=== PATIENT | female | born 1945 | race Caucasian/White ===

== ENCOUNTER 2017-11-07 14:20 | Inpatient (IN) | payer MEDICARE, OTHER ==
[~2017-11-07] VITALS: Ht 157.5 cm; Wt 108.6 kg
[2017-11-07] MEDS ORDERED: Enalapril-Hctz1 EACH PO (14:59)
[2017-11-07] MEDS ORDERED: Micro-K10 MEQ PO (14:59)
[2017-11-07] MEDS ORDERED: LEVSOD50 PO (14:59)
[2017-11-07 15:02] LABS: BASOPHILS ABSOLUTE AUTO 0.05 K/mm3 (0.00-0.23); BASOPHILS PERCENT AUTO 1 % (0-2); EOSINOPHILS ABSOLUTE AUTO 0.08 K/mm3 (0.00-0.68); EOSINOPHILS PERCENT AUTO 1 % (0-6); Hematocrit 42.8 % (33.0-51.0); Hemoglobin 14.4 g/dL (11.5-16.0); IMMATURE GRAN ABSOLUTE AUTO 0.03 K/mm3 (0.00-0.10); IMMATURE GRAN PERCENT AUTO 0 % (0-1); LYMPHOCYTES ABSOLUTE AUTO 1.69 K/mm3 (0.84-5.20); LYMPHOCYTES PERCENT AUTO 23 % (21-46); MONOCYTES ABSOLUTE AUTO 0.81 K/mm3 (0.16-1.47); MONOCYTES PERCENT AUTO 11 % (4-13); Mean Corpuscular HGB 29.1 pg (26.0-34.0); Mean Corpuscular HGB Conc 33.6 g/dL (31.5-36.5); Mean Corpuscular Volume 87 fL (80-100); Mean Platelet Volume 10.9 fL (9.1-12.4); NEUTROPHILS ABSOLUTE AUTO 4.59 K/mm3 (1.96-9.15); NEUTROPHILS PERCENT AUTO 63 % (41-73); Platelet Count 254 K/mm3 (150-400); RDW Coefficient Variation 13.1 % (11.7-14.2); RDW Standard Deviation 40.9 fL (35.1-46.3); Red Blood Cell Count 4.94 M/mm3 (3.80-5.20); White Blood Cell Count 7.25 K/mm3 (4.00-11.30)
[2017-11-07 15:11] LABS: International Normalized Ratio 1.02; Prothrombin Time Results 10.5 Sec (9.7-11.5)
[2017-11-07] MEDS ORDERED: BUME1 PO (15:13)
[2017-11-07] MEDS ORDERED: VERA80 PO (15:14)
[2017-11-07 15:18] LABS: Alanine Aminotransfer (ALT/SGP 19 U/L (12-78); Albumin, Blood 3.9 g/dL (3.4-5.0); Albumin/Globulin Ratio 1.1 (0.8-1.8); Alk Phos 85 U/L (50-136); Anion Gap 9 mmol/L (6-16); Aspartate Aminotrans (AST/SGOT 17 U/L (12-37); Bilirubin, Total 0.8 mg/dL (0.1-1.0); Blood Urea Nitrogen 17 mg/dL (8-24); Bun/Creatinine Ratio 27.5 (12.0-20.0); CO2, Blood 26 mmol/L (21-32); Calcium, Blood 8.9 mg/dL (8.5-10.1); Chloride, Blood 105 mmol/L (98-108); Creatinine, Blood 0.62 mg/dL (0.40-1.00); Globulin, Blood 3.4 g/dL (2.2-4.0); Glomerular Filtration Rate >60 (60-); Glucose, Blood 105 mg/dL (70-99); Potassium, Blood 3.3 mmol/L (3.5-5.5); Sodium, Blood 140 mmol/L (136-145); Total Protein, Blood 7.3 g/dL (6.4-8.2)
[2017-11-07] MEDS ORDERED: IBUP800 PO (18:14)
[2017-11-07] MEDS ORDERED: VOLTAREN TOP (18:16)
[2017-11-08 08:37] LABS: BASOPHILS ABSOLUTE AUTO 0.02 K/mm3 (0.00-0.23); BASOPHILS PERCENT AUTO 0 % (0-2); EOSINOPHILS PERCENT AUTO 0 % (0-6); Hemoglobin 14.2 g/dL (11.5-16.0); IMMATURE GRAN ABSOLUTE AUTO 0.04 K/mm3 (0.00-0.10); IMMATURE GRAN PERCENT AUTO 0 % (0-1); LYMPHOCYTES ABSOLUTE AUTO 0.78 K/mm3 (0.84-5.20); LYMPHOCYTES PERCENT AUTO 7 % (21-46); MONOCYTES ABSOLUTE AUTO 0.43 K/mm3 (0.16-1.47); MONOCYTES PERCENT AUTO 4 % (4-13); Mean Corpuscular HGB 29.6 pg (26.0-34.0); Mean Corpuscular HGB Conc 33.8 g/dL (31.5-36.5); Mean Corpuscular Volume 88 fL (80-100); Mean Platelet Volume 10.7 fL (9.1-12.4); NEUTROPHILS PERCENT AUTO 88 % (41-73); Platelet Count 260 K/mm3 (150-400); RDW Coefficient Variation 13.1 % (11.7-14.2); Red Blood Cell Count 4.79 M/mm3 (3.80-5.20); White Blood Cell Count 10.57 K/mm3 (4.00-11.30)
[2017-11-08 08:53] LABS: Anion Gap 10 mmol/L (6-16); Blood Urea Nitrogen 16 mg/dL (8-24); Bun/Creatinine Ratio 27.7 (12.0-20.0); CO2, Blood 25 mmol/L (21-32); Calcium, Blood 8.8 mg/dL (8.5-10.1); Chloride, Blood 104 mmol/L (98-108); Creatinine, Blood 0.58 mg/dL (0.40-1.00); Glomerular Filtration Rate >60 (60-); Glucose, Blood 132 mg/dL (70-99); Potassium, Blood 2.9 mmol/L (3.5-5.5); Sodium, Blood 139 mmol/L (136-145)
== END 2017-11-08 14:52 | disposition short-term general hospital (02) | DRG 64 ==
LOC: ER 14:20 → PCU 17:00
PROVIDERS: Internal Medicine
DX: I63.9 Cerebral infarction, unspecified (principal); I61.9 Nontraumatic intracerebral hemorrhage, unspecified; I69.151 Hemiplegia and hemiparesis following nontraumatic intracerebral hemorrhage affecting right dominant side; I48.91 Unspecified atrial fibrillation; E03.9 Hypothyroidism, unspecified; I10 Essential (primary) hypertension; G47.33 Obstructive sleep apnea (adult) (pediatric); I69.120 Aphasia following nontraumatic intracerebral hemorrhage; I69.192 Facial weakness following nontraumatic intracerebral hemorrhage
CPT/HCPCS: 36415; 70450; 70544; 70551; 80048; 80053; 85025; 85610; 93005; 93010; 94762; J0360; J7060

== ENCOUNTER 2018-10-12 14:09 | Observation (INO) | payer MEDICARE, OTHER ==
[~2018-10-12] VITALS: Ht 162.6 cm; Wt 102.0 kg
[~2018-10-12 14:09] MED LIST: BUME1 PO; Enalapril-Hctz1 EACH PO; IBUP800 PO; LEVSOD50 PO; Micro-K10 MEQ PO; VERA80 PO; VOLTAREN TOP
[2018-10-12 14:26] LABS: BASOPHILS ABSOLUTE AUTO 0.06 K/mm3 (0.00-0.23); BASOPHILS PERCENT AUTO 1 % (0-2); EOSINOPHILS ABSOLUTE AUTO 0.07 K/mm3 (0.00-0.68); EOSINOPHILS PERCENT AUTO 1 % (0-6); Hematocrit 43.8 % (33.0-51.0); IMMATURE GRAN ABSOLUTE AUTO 0.02 K/mm3 (0.00-0.10); IMMATURE GRAN PERCENT AUTO 0 % (0-1); LYMPHOCYTES ABSOLUTE AUTO 1.65 K/mm3 (0.84-5.20); LYMPHOCYTES PERCENT AUTO 26 % (21-46); MONOCYTES ABSOLUTE AUTO 0.71 K/mm3 (0.16-1.47); MONOCYTES PERCENT AUTO 11 % (4-13); Mean Corpuscular HGB 29.8 pg (26.0-34.0); Mean Corpuscular Volume 93 fL (80-100); NEUTROPHILS ABSOLUTE AUTO 3.78 K/mm3 (1.96-9.15); NEUTROPHILS PERCENT AUTO 60 % (41-73); Platelet Count 221 K/mm3 (150-400); RDW Coefficient Variation 13.3 % (11.7-14.2); RDW Standard Deviation 45.9 fL (35.1-46.3); White Blood Cell Count 6.29 K/mm3 (4.00-11.30)
[2018-10-12] MEDS ORDERED: METO100 PO (14:35)
[2018-10-12] MEDS ORDERED: XARELTO20 MG PO (14:35)
[2018-10-12] MEDS ORDERED: AMLO5 PO (14:35)
[2018-10-12] MEDS ORDERED: ESCI10 PO (14:36)
[2018-10-12 14:49] LABS: International Normalized Ratio 1.22; Prothrombin Time Results 12.7 Sec (9.7-11.5)
[2018-10-12 14:50] LABS: Alanine Aminotransfer (ALT/SGP 30 U/L (12-78); Albumin, Blood 3.8 g/dL (3.4-5.0); Albumin/Globulin Ratio 1.1 (0.8-1.8); Alk Phos 106 U/L (50-136); Anion Gap 10 mmol/L (6-16); Aspartate Aminotrans (AST/SGOT 28 U/L (12-37); Bilirubin, Total 1.3 mg/dL (0.1-1.0); Blood Urea Nitrogen 14 mg/dL (8-24); Bun/Creatinine Ratio 18.8 (12.0-20.0); CO2, Blood 25 mmol/L (21-32); Calcium, Blood 8.7 mg/dL (8.5-10.1); Chloride, Blood 106 mmol/L (98-108); Creatinine, Blood 0.74 mg/dL (0.40-1.00); Globulin, Blood 3.6 g/dL (2.2-4.0); Glomerular Filtration Rate >60 (60-); Glucose, Blood 131 mg/dL (70-99); Potassium, Blood 3.8 mmol/L (3.5-5.5); Sodium, Blood 141 mmol/L (136-145); Total Protein, Blood 7.4 g/dL (6.4-8.2)
[2018-10-12 15:13] LABS: Source, Urine Clean Catch
[2018-10-12 15:17] LABS: Bilirubin, Urine Neg (Neg); Blood, Urine 1+ (Neg); Glucose Qualitative, Urine Neg (Neg); Ketones, Urine Neg (Neg); Leukocyte Esterase, Urine Neg (Neg); Nitrite, Urine Neg (Neg); Protein, Urine 2+ (Neg); Specific Gravity, Urine 1.015 (1.003-1.022); Urobilinogen, Urine NORM (Normal); pH, Urine 6.5 (5.0-8.0)
[2018-10-12 15:23] LABS: Appearance, Urine Clear (Clear); Color, Urine Yellow (P-Yellow)
[2018-10-12 15:28] LABS: Bacteria Few /hpf; Red Blood Cells, Urine 0-2 /hpf (0-2); Squamous Epithelial Cells Not Seen /hpf (Few); White Blood Cells, Urine 0-2 /hpf (0-5)
[2018-10-12] MEDS ORDERED: ATOR40TA PO (16:00)
--- NOTE | 2018-10-12 17:30 | NUR ---
echocardiogram complete
--- NOTE | 2018-10-12 18:52 | NUR ---
REPORT RECEIVED FROM RUDOLPH JURADO RN. NO ACUTE CHANGES NOTED. PATIENT REPORTS SHE IS BACK TO HER BASELINE. NO COMPLAINTS OF PAIN OR DISCOMFORT NOTED. NEURO'S WNL. O2 @ 4 LITERS WHICH IS BASELINE FOR PATIENT AT NIGHT AND WHEN SHE IS FEELING SHORT OF BREATH. NO OTHER ISSUES NOTED. WILL CONTINUE TO MONITOR FOR CHANGES.
[2018-10-13 05:54] LABS: BASOPHILS ABSOLUTE AUTO 0.04 K/mm3 (0.00-0.23); BASOPHILS PERCENT AUTO 1 % (0-2); EOSINOPHILS ABSOLUTE AUTO 0.08 K/mm3 (0.00-0.68); EOSINOPHILS PERCENT AUTO 1 % (0-6); Hematocrit 40.6 % (33.0-51.0); Hemoglobin 13.1 g/dL (11.5-16.0); IMMATURE GRAN ABSOLUTE AUTO 0.01 K/mm3 (0.00-0.10); IMMATURE GRAN PERCENT AUTO 0 % (0-1); LYMPHOCYTES ABSOLUTE AUTO 1.26 K/mm3 (0.84-5.20); LYMPHOCYTES PERCENT AUTO 17 % (21-46); MONOCYTES ABSOLUTE AUTO 0.89 K/mm3 (0.16-1.47); MONOCYTES PERCENT AUTO 12 % (4-13); Mean Corpuscular HGB 29.4 pg (26.0-34.0); Mean Corpuscular HGB Conc 32.3 g/dL (31.5-36.5); Mean Corpuscular Volume 91 fL (80-100); Mean Platelet Volume 11.2 fL (9.1-12.4); NEUTROPHILS ABSOLUTE AUTO 5.18 K/mm3 (1.96-9.15); NEUTROPHILS PERCENT AUTO 70 % (41-73); Platelet Count 207 K/mm3 (150-400); RDW Coefficient Variation 13.2 % (11.7-14.2); RDW Standard Deviation 44.6 fL (35.1-46.3); Red Blood Cell Count 4.45 M/mm3 (3.80-5.20); White Blood Cell Count 7.46 K/mm3 (4.00-11.30)
[2018-10-13 06:24] LABS: Alanine Aminotransfer (ALT/SGP 28 U/L (12-78); Albumin, Blood 3.4 g/dL (3.4-5.0); Alk Phos 86 U/L (50-136); Anion Gap 5 mmol/L (6-16); Aspartate Aminotrans (AST/SGOT 25 U/L (12-37); Bilirubin, Total 1.3 mg/dL (0.1-1.0); Blood Urea Nitrogen 13 mg/dL (8-24); Bun/Creatinine Ratio 20.4 (12.0-20.0); CO2, Blood 30 mmol/L (21-32); Calcium, Blood 8.4 mg/dL (8.5-10.1); Chloride, Blood 105 mmol/L (98-108); Creatinine, Blood 0.64 mg/dL (0.40-1.00); Globulin, Blood 3.3 g/dL (2.2-4.0); Glomerular Filtration Rate >60 (60-); Glucose, Blood 95 mg/dL (70-99); Potassium, Blood 3.3 mmol/L (3.5-5.5); Sodium, Blood 140 mmol/L (136-145); Total Protein, Blood 6.7 g/dL (6.4-8.2)
--- NOTE | 2018-10-13 07:27 | NUR ---
SHIFT SUMMARY PT IS A 73 Y/O FEMALE, ADMITTED WITH A TIA. SHE IS A&O X 4, AND A SBA WITH A CANE IN THE ROOM. THE PT REMAINED NEUROLOGICALLY INTACT DURING THE NIGHT, WITH NO S/S OF NEURO DEFICITS NOTED. SHE DENIED ANY COMPLAINTS OF PAIN, NAUSEA OR SOB, AND SLEPT WELL THROUGH THE NIGHT. NO OTHER ACUTE CHANGES IN PT CONDITION NOTED. REPORT GIVEN TO ONCOMING RN.
--- NOTE | 2018-10-13 16:33 | NUR ---
PT DISCHARGED PT DISCHARGED AT 1616. NO CHANGES IN ASSESSMENT AT THIS TIME. VSS. PT EDUCATED ON DC INSTRUCTIONS & THAT [facility] WILL CALL TO MAKE A FOLLOW UP APPOINTMENT. PT DENIES FUTHER INSTRUCTION. PT WHEELED OUT BY THIS RN & DRIVEN HOME BY DAUGHTER IN LAW. IV REMOVED & INTACT.
== END 2018-10-13 16:16 | disposition home or self-care (01) ==
LOC: ER 14:09 → MEDS 14:10 → ER 16:57 → MEDS 18:11 → ENPENDDIS 10-13 15:31 → MEDS 10-13 16:16
PROVIDERS: Emergency Medicine; ADMIT Student in an Organized Health Care Education/Training Program
DX: I63.9 Cerebral infarction, unspecified (principal); G45.9 Transient cerebral ischemic attack, unspecified; I48.2 Chronic atrial fibrillation; I10 Essential (primary) hypertension; G47.33 Obstructive sleep apnea (adult) (pediatric)
CPT/HCPCS: 36415; 70450; 71045; 80053; 81001; 85025; 85610; 85730; 92523; 93005; 93010; 93306; 93880; 97162; 97166; 97530; 99285-25; G0378; G0515; P9612

== ENCOUNTER → 2018-12-19 | Outpatient (CLI) | payer MEDICARE, OTHER ==
[~2018-12-19] MED LIST changes: +AMLO5 PO; +ATOR40TA PO; +ESCI10 PO; +METO100 PO; +XARELTO20 MG PO
== END | disposition home or self-care (01) ==
LOC: LAB EV 16:40 → LAB SHORT 16:40
DX: R31.9 Hematuria, unspecified (principal)
CPT/HCPCS: 87086

== ENCOUNTER → 2019-01-07 | Outpatient (CLI) | payer MEDICARE, OTHER | END | disposition home or self-care (01) | LOC: LAB EV 16:00 → LAB SHORT 16:00 | DX: R30.0 Dysuria (principal); Z79.899 Other long term (current) drug therapy | CPT/HCPCS: 87077; 87086; 87186 ==

== ENCOUNTER → 2019-04-11 | Outpatient (CLI) | payer MEDICARE, OTHER | LOC: LAB EV 14:00 → LAB SHORT 14:00 | DX: R82.998 Other abnormal findings in urine (principal) | CPT/HCPCS: 87086 ==

== ENCOUNTER → 2019-08-28 | Outpatient (CLI) | payer MEDICARE, OTHER | END | disposition home or self-care (01) | LOC: LAB SHORT 13:04 → LAB EV 13:04 | DX: N39.0 Urinary tract infection, site not specified (principal) | CPT/HCPCS: 87077; 87086; 87186 ==

== ENCOUNTER 2020-05-18 11:37 | Inpatient (IN) | payer MEDICARE, OTHER ==
[~2020-05-18] VITALS: Ht 160 cm; Wt 114.9 kg
[~2020-05-18 11:37] MED LIST changes: -AMLO5 PO; -ATOR40TA PO; -LEVSOD50 PO; -METO100 PO; -Micro-K10 MEQ PO
[2020-05-18 13:13] LABS: BASOPHILS ABSOLUTE AUTO 0.05 K/mm3 (0.00-0.23); BASOPHILS PERCENT AUTO 1 % (0-2); EOSINOPHILS ABSOLUTE AUTO 0.11 K/mm3 (0.00-0.68); EOSINOPHILS PERCENT AUTO 1 % (0-6); Hematocrit 45.4 % (33.0-51.0); IMMATURE GRAN ABSOLUTE AUTO 0.02 K/mm3 (0.00-0.10); IMMATURE GRAN PERCENT AUTO 0 % (0-1); LYMPHOCYTES ABSOLUTE AUTO 1.24 K/mm3 (0.84-5.20); LYMPHOCYTES PERCENT AUTO 16 % (21-46); MONOCYTES ABSOLUTE AUTO 0.71 K/mm3 (0.16-1.47); MONOCYTES PERCENT AUTO 9 % (4-13); Mean Corpuscular HGB 30.2 pg (26.0-34.0); Mean Corpuscular Volume 92 fL (80-100); Mean Platelet Volume 11.1 fL (9.1-12.4); NEUTROPHILS ABSOLUTE AUTO 5.54 K/mm3 (1.96-9.15); NEUTROPHILS PERCENT AUTO 72 % (41-73); Platelet Count 214 K/mm3 (150-400); RDW Standard Deviation 43.4 fL (35.1-46.3); Red Blood Cell Count 4.96 M/mm3 (3.80-5.20); White Blood Cell Count 7.67 K/mm3 (4.00-11.30)
[2020-05-18 13:29] LABS: Alanine Aminotransfer (ALT/SGP 31 U/L (12-78); Albumin, Blood 3.4 g/dL (3.4-5.0); Albumin/Globulin Ratio 0.9 (0.8-1.8); Alk Phos 120 U/L (50-136); Anion Gap 6 mmol/L (6-16); Aspartate Aminotrans (AST/SGOT 19 U/L (12-37); Bilirubin, Total 1.2 mg/dL (0.1-1.0); Blood Urea Nitrogen 13 mg/dL (8-24); Bun/Creatinine Ratio 18.6 (12.0-20.0); CO2, Blood 29 mmol/L (21-32); Chloride, Blood 107 mmol/L (98-108); Globulin, Blood 3.9 g/dL (2.2-4.0); Glomerular Filtration Rate >60 (60-); Glucose, Blood 110 mg/dL (70-99); Potassium, Blood 3.5 mmol/L (3.5-5.5); Sodium, Blood 142 mmol/L (136-145); Total Protein, Blood 7.3 g/dL (6.4-8.2)
[2020-05-18 13:35] LABS: International Normalized Ratio 1.02; Prothrombin Time Results 10.9 Sec (9.7-11.5)
[2020-05-18] MEDS ORDERED: Micro-K10 MEQ PO (13:49)
[2020-05-18] MEDS ORDERED: AMLO5 PO (13:49)
[2020-05-18] MEDS ORDERED: ATOR40TA PO (13:50)
[2020-05-18] MEDS ORDERED: Aspir 8181 MG PO (13:57)
--- NOTE | 2020-05-18 16:05 | NUR ---
ARRIVAL TO ICU PT ARRIVES TO ICU AT 1523 FROM ER. ADMITTED FOR CVA. PER ONLINE EDITOR, SUDDEN ONSET OF RIGHT SIDED WEAKNESS AT 1105 WHILE AT HEARING APPT. PT c EXPRESSIVE APHAGIA, ABLE TO SPEAK 2-3 WORDS AT A TIME. FRUSTRATED. ATTEMPTED TO USE COMMUNICATION BOARD c PT c LITTLE SUCCESS. RIGHT SIDED FACIAL DROOP. NO MOVEMENT TO RIGHT ARM OR LEG. PT DENIES SENSATION. EXT PULSES PAL. CAP REFILL>3 SEC. FULL ROM TO LEFT SIDE. HEARING AID TO LEFT EAR ONLY. DE LUNA PATENT, DRAINING TO GRAVITY. VSS. CALL LIGHT IN REACH. WILL CONTINUE TO MONITOR.
--- NOTE | 2020-05-18 17:33 | NUR ---
SHIFT SUMMARY NO CHANGES IN ASSESSMENT. PT CONTINUES TO HAVE EXPRESSIVE APHAGIA. ABLE TO SWALLOW ASA s DIFFICULTIES. PT ABLE TO COMMUNICATE THAT SHE IS CONCERNED ABOUT HER DOG AND NEEDS SOMEONE TO CHECK ON THEM. ALSO THAT HER CAR IS AT THE HEARING OFFICE. ATTEMPTED MULTIPLE TIMES TO CONTACT PT'S SON TRINY. LEFT MESSAGE. DR POOLE ROUNDED, ORDERED q2 HR NEURO CHECKS. WILL CONTINUE TO MONITOR UNTIL REPORT TO ONCOMING NURSE.
--- NOTE | 2020-05-18 19:00 | NUR ---
ASSUMED CARE NOTE: ASSUMED CARE OF PT AT 1900, RECEVIED REPORT FROM CLARENCE SERRANO. PT IS ALERT AND ABLE TO COMMUNICATE USING HEAD AND HAND GEATURES. PT IS EXPERENCING SEVERE EXPRESSIVE APHASIA. PT UNABLE TO USE COMMINICATION BOARD. PT BECOMES FRUSTRATED WHEN NOT ABLE TO COMMINICATE HER NEEDS. HOWEVER, SHE IS COOPRATIVE WITH CARE. PT IS ON RA WITH SPO2 ABOVE 90% PT IN AFIB WITH HR IN THE 70'S . SBP 150-160. PULSES STRONG IN BILAT PEDAL AND RADIAL. RIGHT ARM FLACCID, MUSCLE TWITCH NOTED TO RIGHT LEG, SOME GROSS MOVEMENT NOTED. PT DENIES ANY SENSATION TO RIGHT ARM/LEG. WILL CONTINUE TO MONITOR PT T/O SHIFT.
[2020-05-19 03:40] LABS: BASOPHILS ABSOLUTE AUTO 0.05 K/mm3 (0.00-0.23); BASOPHILS PERCENT AUTO 1 % (0-2); EOSINOPHILS ABSOLUTE AUTO 0.11 K/mm3 (0.00-0.68); EOSINOPHILS PERCENT AUTO 1 % (0-6); Hematocrit 42.2 % (33.0-51.0); Hemoglobin 14.1 g/dL (11.5-16.0); IMMATURE GRAN ABSOLUTE AUTO 0.02 K/mm3 (0.00-0.10); IMMATURE GRAN PERCENT AUTO 0 % (0-1); LYMPHOCYTES ABSOLUTE AUTO 1.49 K/mm3 (0.84-5.20); LYMPHOCYTES PERCENT AUTO 18 % (21-46); MONOCYTES ABSOLUTE AUTO 0.86 K/mm3 (0.16-1.47); MONOCYTES PERCENT AUTO 10 % (4-13); Mean Corpuscular HGB 30.6 pg (26.0-34.0); Mean Corpuscular HGB Conc 33.4 g/dL (31.5-36.5); Mean Corpuscular Volume 92 fL (80-100); Mean Platelet Volume 10.7 fL (9.1-12.4); NEUTROPHILS ABSOLUTE AUTO 5.95 K/mm3 (1.96-9.15); NEUTROPHILS PERCENT AUTO 70 % (41-73); Platelet Count 201 K/mm3 (150-400); RDW Coefficient Variation 13.1 % (11.7-14.2); RDW Standard Deviation 43.4 fL (35.1-46.3); Red Blood Cell Count 4.61 M/mm3 (3.80-5.20); White Blood Cell Count 8.48 K/mm3 (4.00-11.30)
[2020-05-19 03:55] LABS: Anion Gap 8 mmol/L (6-16); Blood Urea Nitrogen 12 mg/dL (8-24); Bun/Creatinine Ratio 18.2 (12.0-20.0); CO2, Blood 27 mmol/L (21-32); Calcium, Blood 8.6 mg/dL (8.5-10.1); Chloride, Blood 108 mmol/L (98-108); Creatinine, Blood 0.66 mg/dL (0.40-1.00); Glomerular Filtration Rate >60 (60-); Glucose, Blood 106 mg/dL (70-99); Potassium, Blood 3.1 mmol/L (3.5-5.5); Sodium, Blood 143 mmol/L (136-145)
--- NOTE | 2020-05-19 06:04 | NUR ---
SHIFT SUMMARY: NO CHANGES TO NEURO STATUS T/O SHIFT. PT REMAINS ABLE TO FOLLOW COMMANDS, HAS BEEN ABLE TO COMMUNICATE USING BODY GESTURES. PT WORE CPAP T/O NIGHT SPO2 MAINTAINED ABOVE 90% PT HAS BEEN IN AFIB WITH HR BETWEEN 50-70. BP STABLE. RIGHT ARM CONTINUES TO BE FLACCID, PT DENIES ANY SENSATION TO THE ARM. RLE MOVES SPONTANOUSLY W/O PURPOSE, PT DENIES SENSATION TO EXTREMITY. BT HEARD, NO BM THIS SHIFT. DE LUNA PATENT, DRAINING TO GRAVITY. LR RUNNING AT 50ML/HR. WILL CONTINUE TO MONITOR PT UNTIL REPORT IS GIVEN TO ONCOMING SHIFT.
--- NOTE | 2020-05-19 08:30 | NUR ---
ASSUMED CARE BEDSIDE REPORT FROM LEONARDO SERRANO. PT RESTING IN BED. WAKES c VERBAL STIMULI. WEARING CPAP FOR SLEEP. ON RA WHEN AWAKE, O2 SATS >93%. PT ABLE TO FOLLOW SIMPLE COMMANDS. NO MOVEMENT TO RIGHT ARM, GROSS INVOLUNTARY MOVEMENT TO RIGHT LEG. RIGHT SIDED FACIAL DROOP. EXPRESSIVE APHAGIA CONTINUES, UNCHANGES SINCE YESTERDAY. AFIB ON MONITOR, RATE 50'S. BP STABLE. WILL CONTINUE TO MONITOR.
--- NOTE | 2020-05-19 10:47 | NUR ---
echocardiogram completed.
--- NOTE | 2020-05-19 17:05 | NUR ---
SHIFT SUMMARY PT STATUS CHANGED TO PCU THIS SHIFT. NEURO EXAMS REMAIN UNCHANGED. MRI COMPLETED AND IMAGES SHIPPED TO [facility]. ECHO COMPLETED, PENDING RESULTS. EVALUATED BY SPEECH THERAPY. REGULAR DIET ORDERED. IVF CHANGED TO NACL c K. DE LUNA PATENT, DRAINING CLEAR LEONIDAS URINE TO GRAVITY. WILL CONTINUE TO MONITOR UNTIL REPORT TO ONCOMING NURSE.
--- NOTE | 2020-05-19 18:59 | NUR ---
RECEIVED REPORT FROM ZACH SEPULVEDA FROM ICU. PT TO ROOM AT 1855. WILL CONTINUE TO MONITOR UNITL REPORT GIVEN TO ONCOMING RN.
[2020-05-20 04:26] LABS: Anion Gap 6 mmol/L (6-16); Blood Urea Nitrogen 18 mg/dL (8-24); Bun/Creatinine Ratio 25.5 (12.0-20.0); CO2, Blood 27 mmol/L (21-32); Calcium, Blood 8.5 mg/dL (8.5-10.1); Chloride, Blood 110 mmol/L (98-108); Creatinine, Blood 0.71 mg/dL (0.40-1.00); Glomerular Filtration Rate >60 (60-); Glucose, Blood 124 mg/dL (70-99); Magnesium, Blood 2.2 mg/dL (1.6-2.4); Potassium, Blood 3.6 mmol/L (3.5-5.5); Sodium, Blood 143 mmol/L (136-145)
--- NOTE | 2020-05-20 05:49 | NUR ---
05/20/20 0545 PT AWAKENED FOR VITALS AND REPOSITIONING. DENIES ANY DISCOMFORT WITH "NO." ABLE TO SAY ONE WORD ANSWERS THIS SHIFT. BP WAS ELEVATED LAST EVENING AND ON-CALL MD NOTIFIED. ORDER WAS GIVEN TO CALL MD IF SBP GREATER THAN 185. IT WAS NOT THAT HIGH AFTERWARDS. DE LUNA PATENT AND DRAINING WELL. TAKING ORAL LIQUIDS AND APPLESACE WITHOUT PROBLEMS. CPAP WAS ON MOST OF NIGHT AND SHE REQUESTED IT OFF NOW. CPAP REMOVED.
--- NOTE | 2020-05-20 14:16 | NUR ---
ADMIT: 05/18/20 DISCHARGE: DX: CVA CC: LEIF CALL: RESIDENCE: home CAREGIVER: Dilia Schroeder, Daughter, , DX: CVA, Afib, HTN, NEW, see list DME: CPAP machine CCM: none HOME HEALTH: [facility] 2018 SUMMARY: 05/20/20- per chart review with Dr. Melton, pt has had a stroke affecting the right side of her body. is thinking that she will need to go to SNF when stable to d/c. is waiting to see what PT and OT's recommendations are for pt to help determine her d/c plan. At this time, there is no ETA for d/c. -kjw 1: Neurologic deficit due to acute ischemic cerebrovascular accident (CVA) A/P: - Admitted to ICU for monitoring - CT head without acute hemorrhage, but CTA of neck showed complete occlusion of left M1 segment. - ED physician Dr. Gordon reported consulting neurology/stroke team at [facility] with determination that patient was neither a candidate for tPA nor thrombectomy of left M1 segment occlusion due to her history of hemorrhagic conversion and high bleeding risk. Instead the recommendations were relayed to me to provide routine care with aspirin and hold anticoagulants at this time, with repeat CT brain in 12 hours to assess for hemorrhage or interval change. There was initial concern about Xarelto use but the patient has not taken this since [address] imaging is completed, we should consult [facility] stroke/neurology team for if/when to consider anticoagulation such as Xarelto. - permissive hypertension holding amlodipine unless BP>200/110. Continuing beta gracie for a fib rate control - neuro checks Q2H. Will perform CT head prompltly for any signficant acute changes - MRI and cardiac echo ordered for tomorrow - PT, OT eval and speech therapy for formal swallow eval tomorrow - Will allow small sips of clear fluids for now if tolerated. MIVF with LR @ 50 ml/hr until taking PO well. - Continue home atorvastatin 40 mg daily 2: Episodic atrial fibrillation A/P: - Changed home metoprolol 100 mg BID to atenolol 50 mg BID to provide rate control for A fib with less antihypertensive effect. Will return to metoprolol before hospital discharge when resuming chronic hypertension control
--- NOTE | 2020-05-20 17:17 | NUR ---
SHIFT SUMMARY PT ALERT; ATTEMPTS TO COMMUNICATE BUT APPEARS FRUSTRATED TO NOTE FIND THE RIGHT WORDS. PT ANSWERING YES/NO QUESTIONS; ATTEMPTS LONGER ANSWER. T/O SHIFT. PT REPOSITIONED T/O SHIFT FOR COMFORT AND PRESSURE ULCER PREVENTION. PT DENIES PAIN, SOB, NAUSEA AND DIZZINESS. BP TRENDING DOWN T/O SHIFT. OTHER VSS. NO OTHER ACUTE CHANGES NOTED DURING SHIFT. WILL CONTINUE TO MONITOR UNITL REPORT GIVEN TO ONCOMING RN.
--- NOTE | 2020-05-21 06:08 | NUR ---
SHIFT SUMMARY PT ALERT, UNABLE TO COMMUNICATE VERBALLY BEYOND "YES" & "NO" RESPONSES. PT ATTEMPTING TO VERBALLY COMMUNICATE T/O SHIFT BUT UNABLE. PT ATTEMPTING TO STATE OWN NAME BUT STRUGGLES W/ FORMING WORDS & MAKES SOUNDS ONLY. PT GRABBING AT LEFT EAR MULTIPLE TIMES THIS SHIFT TRYING TO COMMUNICATE SOMETHING ABOUT L SIDE OF HEAD &/OR EAR, BUT PT DENIES PAIN, DENIES HEARING AID, DENIES THE MANY OPTIONS Q'd TO WHAT PT MAY BE TRYING TO COMMUNICATE. VISUAL PICTURE BOARD AT BEDSIDE FOR PT COMMUNICATION. PT VSS. SPO2 > 92% ON RA OR CPAP WHILE SLEEPING. MONITOR SHOWING AFIB, HR 70's-80's. PT R ARM FLACCID AT SIDE. Q2H REPOSITIONING BY 2 STAFF MEMEBERS W/ MODERATE/MAX ASSIST. DE LUNA CATH PATENT & DRAINING DARK YELLOW URINE. WILL CONTINUE TO MONITOR & PROVIDE CARE UNTIL REPORT OFF TO DAY SHIFT RN.
--- NOTE | 2020-05-21 14:32 | NUR ---
Patient has given this student nurse Marco Antonio Schuster permission to provide care at from 13:30-20:30
--- NOTE | 2020-05-21 17:44 | NUR ---
SUMMARY: Admit 05/18/20 05/21/20 Met with Samantha in her room, PT OT recommend Snf for rehab. Samantha prefers to go to [facility] for rehab. Completed a snf check list, turned into caremanagement for review on Thursday. Snf had a maximum amount of requests for today. Samantha would like me to call her son to update him on rehab and when it is available. cp.
--- NOTE | 2020-05-21 17:45 | NUR ---
Per Samantha Bryant ready for discharge to snf, she will place order for covid test and bowel care.
--- NOTE | 2020-05-21 18:12 | NUR ---
SHIFT SUMMARY: PT ALERT T/OUT SHIFT AND ANSWERING QUESTIONS WITH ONE WORD RESPONSES UNTIL APPROX 1650 PT STATED "I DON'T KNOW HOW TO SPELL IT" WHEN ATTEMPTING TO USE COMMUNICATION BOARD. PT ALSO REPORTS IMPROVED SENSATION TO RUE ALTHOUGH EXTREMITY CONTINUES TO BE FLACCED. INDWELLING DE LUNA CONTINUES IN PLACE, Q2H TURNS AND REPOSITIONING TOLERATED MAINTAINED T/OUT SHIFT. WILL CONTINUE TO MONITOR AND TREAT ACCORDINGLY UNTIL CHANGE OF SHIFT.
--- NOTE | 2020-05-21 23:09 | NUR ---
TRANSFER NOTE PT MEDICAL NO TELE STATUS. ALERT, ABLE TO ANSWER Y/N Q's & SAY SOME WORDS. PT UNABLE TO STATE OWN NAME & BUT ANSWERS "YES" TO NAME, , LOCATION, DATE/TIME. PT ABLE TO MAKE NEEDS KNOWN BY POINTING & USING COMMUNICATION PICTURE BOARD. R ARM REMAINS FLACID AT PT's SIDE. R LEG NOW ABLE TO BEND AT KNEE & MINIMALLY LIFT UP OFF OF BED. VSS. SPO2 > 92% ON RA. DE LUNA CATH PATENT & DRAINING W/ SOME LEAKING NOTED. ATTENDS IN PLACE. PT W/ CHAYA BAZAN. Q2H REPOSITIONING. REPORT GIVEN TO ACCEPTING MEDICAL FLOOR RN. PT TO BE TAKEN BY BED W/ BELONGINGS BY 2 PCT's AT THIS TIME.
--- NOTE | 2020-05-21 23:25 | NUR ---
PT ARRIVED FROM PCU-9 VIA GURNEY. TRANSFERRED TO BED USING SLIDER SHEET. AGREED WITH KARLA SERRANO PCU ASSESSMENT. REPOSITIONED TO HER COMFORT. CALL LIGHT IN REACH.
--- NOTE | 2020-05-22 05:55 | NUR ---
SHIFT SUMMARY: ANASTACIO WAS TRANSFERRED TO THIS FLOOR AROUND MIDNIGHT. SHE HAS RIGHT SIDED WEAKNESS, RIGHT ARM FLACCID, RIGHT LEG HAS GROSS MOVEMENT AT TIMES. SHE IS ABLE TO BEND AND LIFT SLIGHTLY. NOT ABLE TO WIGGLE HER TOES FOR ME. ABLE TO STAY "YES' "NO" BUT HAS NOT BEEN ABLE TO SAY ANY OTHER WORDS FOR ME. SHE DOES POINT AND TRY TO WRITE WHAT SHE WANTS BUT HAS DIFFCULTY REMEMBERING HOW TO SPELL A WORD OR WHAT IT IS CALLED. MOST OF THE TIME IT IS A GUESSING GAME. CATHETER IS PATENT AND DRAINING. NO SKIN BREAKDOWN NOTED. RIGHT FACIAL DROOP. BP WAS HIGH IN PCU, NOW ARE DOWN TO NORMAL RANGE. IRREGULAR HR. CPAP AT NIGHT. SLEPT REST OF SHIFT WITH NO ACUTE CHANGES TO NOTE. CALL LIGHT IS IN REACH.
--- NOTE | 2020-05-22 11:28 | NUR ---
EYE DROPS, DC EVANS, AND NEURO CHECKS Received V.O. from Dr. Montes for Refresh eye drops BID, d/c evans catheter, and change Neuro Checks to Q12 hours. Orders have been updated.
[2020-05-22 15:14] LABS: Influenza A, PCR Negative (NEGATIVE); Influenza B, PCR Negative (NEGATIVE); Resp Syncytial Virus, PCR Negative (NEGATIVE); SARS-Cov-2 (COVID-19) PCR, MMC Negative (NEGATIVE)
[2020-05-22] MEDS ORDERED: LIQUID TEARS BOTHEYES (15:42)
[2020-05-22] MEDS ORDERED: DERMAPHOR228 GM BOTHEYES (15:46)
--- NOTE | 2020-05-22 17:14 | NUR ---
Spiritual care note: Samantha admits she is fearful of the future. She becomes frustrated when she cannot speak what she is thinking. I provided encouragement and prayer to good effect. She appeared to enjoy companionship and benefited from my interventions. She is being d/c this afternoon.
--- NOTE | 2020-05-22 17:21 | NUR ---
Discharge Summary A/Ox3, pleasant and cooperative. Discharge to [facility]. Transport set up by . Discharge paperwork completed. Packet given to transport. Personal belongings along with phone and hearing aid sent with patient. Report given to [facility] receiving nurse Contreras.
--- NOTE | 2020-05-22 18:33 | NUR ---
SUMMARY: Admit 05/18/20 [facility] s/w daughter by telephone and Samantha in person. Mary Esther to follow care at [facility], kelsie call will be made to [facility] Thu or to schedule follow up appointment. Left Kelsie letter with Samantha.
== END 2020-05-22 17:10 | DRG 65 ==
LOC: ER 11:37 → PCU 13:48 → ICUW 13:48 → ICUE 15:22 → PCU 05-19 18:51 → MEDS 05-21 23:25
PROVIDERS: Emergency Medicine; ADMIT Family Medicine
DX: I63.519 Cerebral infarction due to unspecified occlusion or stenosis of unspecified middle cerebral artery (principal); G81.91 Hemiplegia, unspecified affecting right dominant side; R29.810 Facial weakness; R47.01 Aphasia; I48.0 Paroxysmal atrial fibrillation; E87.6 Hypokalemia; E78.5 Hyperlipidemia, unspecified; E03.9 Hypothyroidism, unspecified; N18.2 Chronic kidney disease, stage 2 (mild); I12.9 Hypertensive chronic kidney disease with stage 1 through stage 4 chronic kidney disease, or unspecified chronic kidney disease; G47.33 Obstructive sleep apnea (adult) (pediatric); Z20.822 Contact with and (suspected) exposure to COVID-19; Z86.73 Personal history of transient ischemic attack (TIA), and cerebral infarction without residual deficits
CPT/HCPCS: 0241U; 36415; 51702; 70450; 70496; 70498; 70551; 71045; 80048; 80053; 82947; 83735; 85025; 85610; 92523; 92610; 93005; 93010; 93306; 94660; 94762; 97110; 97112; 97162; 97166; 97530; 99285-25; A9270; J3480; J7120; Q9967

== ENCOUNTER 2020-07-07 07:52 | Observation (INO) | payer MEDICARE, OTHER ==
[~2020-07-07] VITALS: Ht 160 cm; Wt 113.4 kg
[~2020-07-07 07:52] MED LIST changes: +AMLO5 PO; +ATOR40TA PO; +Aspir 8181 MG PO; +DERMAPHOR228 GM BOTHEYES; +LIQUID TEARS BOTHEYES; +Micro-K10 MEQ PO
[2020-07-07 08:27] LABS: BASOPHILS ABSOLUTE AUTO 0.06 K/mm3 (0.00-0.23); BASOPHILS PERCENT AUTO 1 % (0-2); EOSINOPHILS ABSOLUTE AUTO 0.21 K/mm3 (0.00-0.68); EOSINOPHILS PERCENT AUTO 3 % (0-6); Hematocrit 46.7 % (33.0-51.0); Hemoglobin 16.2 g/dL (11.5-16.0); IMMATURE GRAN ABSOLUTE AUTO 0.02 K/mm3 (0.00-0.10); IMMATURE GRAN PERCENT AUTO 0 % (0-1); LYMPHOCYTES ABSOLUTE AUTO 1.58 K/mm3 (0.84-5.20); LYMPHOCYTES PERCENT AUTO 19 % (21-46); MONOCYTES PERCENT AUTO 10 % (4-13); Mean Corpuscular HGB 31.3 pg (26.0-34.0); Mean Corpuscular HGB Conc 34.7 g/dL (31.5-36.5); Mean Corpuscular Volume 90 fL (80-100); NEUTROPHILS ABSOLUTE AUTO 5.67 K/mm3 (1.96-9.15); NEUTROPHILS PERCENT AUTO 68 % (41-73); Platelet Count 263 K/mm3 (150-400); RDW Coefficient Variation 13.1 % (11.7-14.2); RDW Standard Deviation 43.1 fL (35.1-46.3); Red Blood Cell Count 5.18 M/mm3 (3.80-5.20); White Blood Cell Count 8.34 K/mm3 (4.00-11.30)
[2020-07-07 08:37] LABS: International Normalized Ratio 0.99; Prothrombin Time Results 10.6 Sec (9.7-11.5)
[2020-07-07 08:48] LABS: Alanine Aminotransfer (ALT/SGP 43 U/L (12-78); Albumin, Blood 3.2 g/dL (3.4-5.0); Albumin/Globulin Ratio 0.8 (0.8-1.8); Alk Phos 129 U/L (50-136); Anion Gap 9 mmol/L (6-16); Aspartate Aminotrans (AST/SGOT 47 U/L (12-37); Blood Urea Nitrogen 15 mg/dL (8-24); Bun/Creatinine Ratio 25.2 (12.0-20.0); CO2, Blood 25 mmol/L (21-32); Calcium, Blood 9.1 mg/dL (8.5-10.1); Chloride, Blood 108 mmol/L (98-108); Glomerular Filtration Rate >60 (60-); Glucose, Blood 123 mg/dL (70-99); Potassium, Blood 4.3 mmol/L (3.5-5.5); Sodium, Blood 142 mmol/L (136-145); Total Protein, Blood 7.2 g/dL (6.4-8.2); Troponin I <0.015 ng/mL (0.000-0.040)
[2020-07-07] MEDS ORDERED: EUTHYROX50 MCG PO (13:03)
[2020-07-07] MEDS ORDERED: METO100 PO (13:04)
[2020-07-07] MEDS ORDERED: POTCHL20ER PO (13:04)
[2020-07-07] MEDS ORDERED: OCEAN104 ML (13:05)
[2020-07-07] MEDS ORDERED: DULCOLAX400 MG/5 M PO (13:05)
--- NOTE | 2020-07-07 18:18 | NUR ---
PT ARRIVED TO THE UNIT VIA BED. SLIDE TRANSFERED. SHE WAS WAS ABLE TO NOD YES AND NO WHEN ASKED IF SHE WAS COMFORTABLE. SON AT BEDSIDE. SHE WAS WAS WET AND HAD A BM, SHE WAS CLEANED AND SHEETS WERE CHANGED, NEW ATTENDS IN PLACE. SHE SLEPT FOR THE REMAINDER OF THIS SHIFT.
[2020-07-07] MEDS ORDERED: AMLO5 PO (21:02)
[2020-07-07] MEDS ORDERED: ASPI325 PO (21:03)
[2020-07-07] MEDS ORDERED: ATOR40TA PO (21:04)
--- NOTE | 2020-07-08 05:51 | NUR ---
PT IS NOT RESPONSIVE AFTER CVA, ON COMFORT CARE. 2L O2 VIA N/C, PT HAS SLEPT SNORING THROUGH SHIFT. INCONTINENT WEARING ATTENDS. FAMILY HAS NOT BEEN PRESENT THIS SHIFT.
--- NOTE | 2020-07-08 19:11 | NUR ---
SHIFT SUMMARY- PT IS SOMNULENT, SHE HAS SLEPT FOR MOST OF THIS SHIFT. SHE IS INC OF BOWEL AND BLADDER. SHE IS MINIMALLY RESPONSIVE, BUT WILL ANSWER QUESTION IS ONE WORD ANSWERS. HER SON WAS AT BEDSIDE THIS SHIFT. SHE HAS NOT ATE OR DRANK ANYTHING THIS SHIFT. HER BED IS IN THE LOW POSITION AND CALL LIGHT WITHIN REACH
--- NOTE | 2020-07-09 06:44 | NUR ---
SHIFT SUMMARY: PT RESTING IN BED COMFORTABLY, MOSTLY UNRESPONSIVE. INCONTINENT OF BOWEL AND BLADDER, CHANGED AND CLEANED NEEDED. NO MEDICATIONS NEEDED OVERNIGHT. TURNED Q2H. NO ACUTE CHANGES OR EVENTS THIS SHIFT.
--- NOTE | 2020-07-09 10:17 | NUR ---
ADMIT: 07/07/20DISCHARGE: DX: CVA CC: kwilcox ADMIT: 05/18/20 DISCHARGE: 05/22/20 DX: CVA CC: CPEABODY LEIF CALL: at home RESIDENCE: Home CAREGIVER: Dilia Schroeder, Daughter, , SON TRINY URIARTE, DX: Afib, HTN, CVA, CKD, NEW, see list DME: CPAP machine and equipment CCM: none [facility]:[place] [id number]
--- NOTE | 2020-07-09 11:02 | NUR ---
VEGETABLE SORTER REPOSITIONED PT. SUCTION SET UP FOR PT.
--- NOTE | 2020-07-09 11:58 | NUR ---
PT MEDICATED FOR INCREASED SECREATIONS. TRINY PATIENTS SON IS VISITING WITH HER.
--- NOTE | 2020-07-09 15:26 | NUR ---
PT REPOSITIONED, HEAD ELEVATED.
--- NOTE | 2020-07-09 18:18 | NUR ---
SHIFT SUMMARY HAVE PROVIED COMFORT CARE THROUGHOUT SHIFT FOR PAIN, AIR HUNGER, ANXIETY AND SECRETION. SUCTION SET UP DURING SHIFT. PT SEEMED TO RESPOND WELL TO MEDICATION. PT SON WAS IN AND OUT OF ROOM DUING SHIFT, HE JUST LEFT AND PLANS TO COME BACK LATER TONIGHT. PT CURENTLY RESTING WITH CALMING MUSIC PLAYING ON THE TV.
--- NOTE | 2020-07-09 19:02 | NUR ---
Spiritual care note: Provided supportive visit to pt's son, Kota, at bedside. He spoke about caring for his mom and how this led to the demise of his marriage. Kota has been working full-time and caring for his mom with escalating needs. He appears tearful and emotionally/physically exhasted. He reports peace with POC and was appreciaitve of emotional affirmation. He asked that I sit at bedisde with pt after he left for work, and I happily complied. Samantha is not responsive, breathing with gurgles. I audibly prayed for her. I will remain available to pt and family.
--- NOTE | 2020-07-10 04:26 | NUR ---
SHIFT SUMMARY: PT IS MOSTLY UNRESPONSIVE. FAMILY IN TO VISIT EARLY IN THE SHIFT. PT INCONTINENT, CHANGED AND CLEANED NEEDED. PT TURNED Q2H. NO ACUTE CHANGES. WILL CONTINUE TO MONITOR.
--- NOTE | 2020-07-10 05:48 | NUR ---
USED SUCTION TO REDUCE SECRETIONS SUCCESSFULLY.
--- NOTE | 2020-07-10 17:36 | NUR ---
Made a visit to pt today; she appears to have mild dyspnea, and respirations are around 24/minute. No other s/s as pt is no longer waking. Notified RN, she will medicate with roxanol and lorazepam now, and watch for relief, giving further doses prn.
--- NOTE | 2020-07-10 18:03 | NUR ---
SHIFT SUMMARY PT AxOx0. PT ON COMFORT CARE. SLEEPING/UNRESPONSIVE MOST OF THE DAY. WALL SUCTION PRN TODAY FOR SECRETIONS. REGULAR RESPOSITIONING AND ORAL CARE PERFORMED. MEDICATED PER EMAR. PT'S SON, TRINY IN THE ROOM TODAY FOR 2 VISITS. TRINY WAS EMOTIONAL TO SEE HIS MOM IN THIS STATE. THERAPEUTIC COMMUNICATION PROVIDED. PT CURRENTLY RESTING IN BED. TRINY AT BEDSIDE. DENIES ANY NEEDS AT THIS TIME.
--- NOTE | 2020-07-10 18:57 | NUR ---
Spiritual care note: No family present at time of visit. Samantha was non-responsive and appeared comfortable. I sat eith her a while, holding her hand and praying. I will remain available.
--- NOTE | 2020-07-10 23:10 | NUR ---
07/10/[address] Melton, patient on comfort care, expects to pass if few days. no hospice planned for home setting. Met with son in patients room, his sister should be arriving tonight. Updated white board, Discussed if they needed a comfort care or any emotional support. Not at this time.. cp
--- NOTE | 2020-07-11 06:30 | NUR ---
SHIFT SUMMARY COMFORT CARE. NONRESPONSIVE. NONVERBAL. DOES PHOTOGRAPHER'S MODEL/MOVE L ARM & HAND @TIMES. R EYE CRUSTED c BROWN/YELLOW MUCUS, WASHED c WARM WASH CLOTH. MEDICATED 2X c ROXANOL FOR DYSPNEA & PAIN. FURROWS BROW & MOANS c REPOSITIONING. BREATHING LABOURED, WET GURGLING NOISE FROM BACK OF THROAT, OCCASIONAL WET COUGH, ABLE TO SUCTION SMALL AMOUNT THICK YELLOW SECRETIONS & MEDICATED c ATROPINE 2X. PROVIDED ORAL CARE, MOUTH VERY DRY, CRACKED. INCONT OF URINE, CHANGED & REPOSITIONED PRN FOR COMFORT. WARM TO TOUCH, REMOVED BLANKETS & TURNED RM TEMP DOWN. SON & DAUGHTER CAME TO VISIT LAST NIGHT. CALL LIGHT IN REACH, [facility].
--- NOTE | 2020-07-11 17:23 | NUR ---
SHIFT SUMMARY PT IS A COMFORT CARE PT. SON AND DTR AT BEDSIDE THIS AFTERNOON AND SON WILL COME BACK TONIGHT. PT MEDICATED FOR PAIN AND SECRETIONS. PT WAS ALSO MEDICATED ATIVAN ONCE; PT IS UNRESPONSIVE. SUCTION FOR ANY SECRETIONS AND ORAL CARE PRN. PT HAD A BED BATH TODAY. Q2 TURN PRN. BED IS IN THE LOWEST POSITION AND CALL LIGHT WITHIN REACH
--- NOTE | 2020-07-11 17:48 | NUR ---
Spiritual care note: Met with pt's son and dtr at bedside. Encouraged story-telling, reflection, and statements of gratitude. Prayer for pt provided. Samantha appeared non-responsive and comfortable. Family complimentary of staff. Catering And Events Manager services will remain available.
--- NOTE | 2020-07-12 08:18 | NUR ---
ROLL THREADER OPERATOR SUMMARY PATIENT SLEPT THROUGH NIGHT TOLERATING Q2 REPOSITIONING WITH MORPHINE GIVEN PRIOR. SECRETIONS MANAGED WITH COMBINATION OF ATROPINE GTTS AND SCOPOLAMINE PATCH. Mitali APPEARED QUITE WARM AND FLUSHED OVERNIGHT. COOL WASHCLOTHES AND REMOVAL OF ALL BUT A SHEET BROUGHT DOWN TEMP. ORDER FOR APAP SUPPOSITORIES OBTAINED BUT NOT NEEDED. 2 EXTRA LARGE VOIDS IN BRIEFS OVERNIGHT. SON TRINY AND DAUGHTER ZEE VERY SUPPORTIVE. THEY WILL BOTH BE IN THIS MORNING
--- NOTE | 2020-07-12 14:12 | NUR ---
SUMMARY/DISCHARGE PT AROUND 1300 WITH BOTH CHILDREN AT HER SIDE, PRONOUNCED BY AIRPORT RAMP ATTENDANT JOHN, HOME ARRANGEMENTS MADE BY AIRPORT RAMP ATTENDANT AND FAMILY, AWAITING HOME ARRIVAL
--- NOTE | 2020-07-12 14:42 | NUR ---
PT TAKEN OUT VIA HOME JONREMIR
--- NOTE | 2020-07-12 16:00 | NUR ---
Placed a visit to pt today; both son and daughter were present for the visit. Pt has been getting lorazepam and roxanol as neded for air hunger, anxiety. She appears relaxed and comfortable at this time. Both daughter and son are very thankful for asisntance. Pt appears to be imminent, but family coping well.
--- NOTE | 2020-07-12 17:05 | NUR ---
07/12/20 AT HOSPITAL. CP
== END 2020-07-12 13:05 ==
LOC: ER 07:52 → ERHOLD 09:30 → ER 09:30 → ERHOLD 09:30 → MEDS 10:15 → ERHOLD 10:15 → MEDS 15:43
PROVIDERS: Emergency Medicine; ADMIT Internal Medicine
DX: I63.9 Cerebral infarction, unspecified (principal); R40.20 Unspecified coma; G93.41 Metabolic encephalopathy; I69.351 Hemiplegia and hemiparesis following cerebral infarction affecting right dominant side; I12.9 Hypertensive chronic kidney disease with stage 1 through stage 4 chronic kidney disease, or unspecified chronic kidney disease; N18.9 Chronic kidney disease, unspecified; E78.5 Hyperlipidemia, unspecified; I48.20 Chronic atrial fibrillation, unspecified; E03.9 Hypothyroidism, unspecified; G47.33 Obstructive sleep apnea (adult) (pediatric); Z66 Do not resuscitate; Z51.5 Encounter for palliative care; Z79.82 Long term (current) use of aspirin; Z91.048 Other nonmedicinal substance allergy status
CPT/HCPCS: 31720; 70450; 80053; 84484; 85025; 85610; 85730; 93005; 93010; 96374; 96375; 96376; 99285-25; A9270; G0378; J2060; J2270